=== PATIENT | female | born 1990 | race Caucasian/White ===

== ENCOUNTER 2017-07-19 08:41 | Inpatient (IN) | payer OTHER ==
[~2017-07-19] VITALS: Ht 167.6 cm; Wt 65.9 kg
[2017-07-19 09:18] LABS: BASOPHIL (%) 0.2 % (0-1); EOSINOPHIL (%) 0 % (0-5); HEMATOCRIT 41.3 % (36.0-46.0); HEMOGLOBIN 14.2 G/DL (11.9-15.5); IMMATURE GRANULOCYTE (%) 0.2 % (0.0-0.7); LYMPHOCYTE (%) 17.7 % (15-42); LYMPHOCYTE COUNT 1.7 K/uL (1.0-2.8); MCH 30.4 PG (29.0-34.0); MCHC 34.4 G/DL (30.0-36.0); MCV 88.4 FL (83-99); MONOCYTE (%) 6.1 % (3-12); MONOCYTE COUNT 0.6 K/uL (0-0.8); NEUTROPHIL (%) 75.8 % (45-76); NEUTROPHIL COUNT 7.2 K/uL (1.8-6.4); PLATELET COUNT 227 K/uL (156-360); RBC DIS.WIDTH-CV 12.8 % (11.8-14.6); RBC DIS.WIDTH-SD 41.8 % (39-53); RED BLOOD COUNT 4.67 M/uL (3.80-5.20); WHITE BLOOD COUNT 9.6 K/uL (4.1-10.2)
[2017-07-19 09:26] LABS: CHLORIDE 107 mEq/L (99-109); POTASSIUM 3.7 mEq/L (3.7-5.4); SODIUM 140 mEq/L (136-147)
[2017-07-19 09:27] LABS: D-DIMER ELISA < 150.00 ng/mLDDU (<230); GLUCOSE 94 mg/dL (70-99); PTT 26.1 SEC (25-37)
[2017-07-19 09:31] LABS: CREATININE 0.7 mg/dL (0.6-1.3); GFR ESTIMATE (CALCULATED) > 59 mL/min/
[2017-07-19 09:32] LABS: UREA NITROGEN (BUN) 14 mg/dL (9-23)
[2017-07-19 09:40] LABS: QUANTITATIVE HCG < 4.0 MIU/ML
[2017-07-19] MEDS ORDERED: ALBUTEROL2.5 MG/3 M IH (12:02)
[2017-07-19] MEDS ORDERED: PREDNISONE PO (12:08)
[2017-07-19] MEDS ORDERED: ZOLPIDEM TARTRAT5 MG PO (12:09)
[2017-07-19] MEDS ORDERED: CLONAZEPAM0.5 MG PO (12:13)
[2017-07-19] MEDS ORDERED: DULOXETINE HCL30 MG PO (12:14)
[2017-07-19] MEDS ORDERED: XULANE PATCH1 EACH TD (12:16)
[2017-07-19] MEDS ORDERED: TIZANIDINE HCL2 MG PO (12:17)
[2017-07-19] MEDS ORDERED: SYMBICORT60 INHALA1 IH (12:18)
[2017-07-19] MEDS ORDERED: VENTOLIN HFA18 GM IH (12:18)
[2017-07-19] MEDS ORDERED: PROMETHEGAN25 MG PR (12:20)
[2017-07-19] MEDS ORDERED: CETIRIZINE HCL10 M2 PO (12:21)
[2017-07-19] MEDS ORDERED: BENADRYL25 MG PO (12:22)
[2017-07-19] MEDS ORDERED: FLONASE ALLERG9.9 ML BOTH NARES (12:24)
[2017-07-19] MEDS ORDERED: AIRBORNE GUMMI1 EACH PO (12:25)
[2017-07-19] MEDS ORDERED: MULTIVITAMIN1 EAC2 PO (12:25)
[2017-07-19] MEDS ORDERED: CALCIUM + D SO1 EACH PO (12:27)
[2017-07-19] MEDS ORDERED: ASCORBIC ACID100 MG PO (12:29)
[2017-07-19 13:03] VITALS: BP 119/70
[2017-07-19 16:55] VITALS: BP 116/63
[2017-07-19 20:38] VITALS: BP 124/75
[2017-07-20 00:38] VITALS: BP 109/58
[2017-07-20 03:53] VITALS: BP 109/58
[2017-07-20 08:00] VITALS: BP 118/74
[2017-07-20] MEDS ORDERED: BENADRYL25 MG PO (11:38)
[2017-07-20] MEDS ORDERED: FRUITY C250 MG PO (11:40)
[2017-07-20 12:00] VITALS: BP 138/68
[2017-07-20 19:30] VITALS: BP 106/59
[2017-07-20 23:36] VITALS: BP 108/62
[2017-07-21 06:33] LABS: HEMATOCRIT 35.7 % (36.0-46.0); MCH 30.4 PG (29.0-34.0); MCHC 33.3 G/DL (30.0-36.0); MCV 91.3 FL (83-99); PLATELET COUNT 197 K/uL (156-360); RBC DIS.WIDTH-CV 12.8 % (11.8-14.6); RBC DIS.WIDTH-SD 42.5 % (39-53); RED BLOOD COUNT 3.91 M/uL (3.80-5.20); WHITE BLOOD COUNT 12.1 K/uL (4.1-10.2)
[2017-07-21 06:36] LABS: HEMOGLOBIN 11.9 G/DL (11.9-15.5)
[2017-07-21 06:53] LABS: CHLORIDE 102 MEQ/L (99-109); CREATININE 0.5 MG/DL (0.6-1.3); GFR ESTIMATE (CALCULATED) > 59 mL/min/; GLUCOSE 136 mg/dL (70-99); POTASSIUM 3.9 MEQ/L (3.7-5.4); SODIUM 136 MEQ/L (136-147); UREA NITROGEN (BUN) 13 mg/dL (9-23)
[2017-07-21 07:31] VITALS: BP 108/78
[2017-07-21 15:50] VITALS: BP 114/65
[2017-07-21 23:29] VITALS: BP 115/65
[2017-07-22 05:43] LABS: HEMATOCRIT 35.5 % (36.0-46.0); HEMOGLOBIN 11.7 G/DL (11.9-15.5); MCH 29.5 PG (29.0-34.0); MCV 89.6 FL (83-99); PLATELET COUNT 212 K/uL (156-360); RBC DIS.WIDTH-CV 12.5 % (11.8-14.6); RBC DIS.WIDTH-SD 41.6 % (39-53); RED BLOOD COUNT 3.96 M/uL (3.80-5.20); WHITE BLOOD COUNT 12.3 K/uL (4.1-10.2)
[2017-07-22 06:11] LABS: CHLORIDE 102 MEQ/L (99-109); CREATININE 0.5 MG/DL (0.6-1.3); GFR ESTIMATE (CALCULATED) > 59 mL/min/; GLUCOSE 116 mg/dL (70-99); POTASSIUM 4.2 MEQ/L (3.7-5.4); SODIUM 139 MEQ/L (136-147); UREA NITROGEN (BUN) 13 mg/dL (9-23)
[2017-07-22 08:00] VITALS: BP 128/78
[2017-07-22 16:00] VITALS: BP 114/58
[2017-07-23] VITALS: BP 129/83
[2017-07-23 07:27] VITALS: BP 130/90
[2017-07-23] MEDS ORDERED: PREDNISONE20 MG PO (16:02)
[2017-07-23] MEDS ORDERED: MUCINEX600 MG PO (16:02)
== END 2017-07-23 18:17 | disposition home or self-care (01) | DRG 202 ==
LOC: EME 08:41 → 5SOUTH 11:24 → EDOF 11:24 → ENRESERV 11:35 → EDOF 12:04 → 5SOUTH 12:46
PROVIDERS: Emergency Medicine; Hospitalist
DX: J45.21 Mild intermittent asthma with (acute) exacerbation (principal); J96.01 Acute respiratory failure with hypoxia; J10.1 Influenza due to other identified influenza virus with other respiratory manifestations; J10.08 Influenza due to other identified influenza virus with other specified pneumonia; J12.89 Other viral pneumonia; J98.11 Atelectasis; Z90.721 Acquired absence of ovaries, unilateral; J20.8 Acute bronchitis due to other specified organisms
CPT/HCPCS: 71045; 71275; 80048; 83880; 84702; 85025; 85027; 85379; 85610; 85730; 87502; 93005; 94640; 94640 76; 94799; 99202; 99281; 99285; J2405; J2930; J7030; J7512